=== PATIENT | male | born 1955 | race African-American/Black ===

== ENCOUNTER 2017-09-19 04:28 | Emergency (ER) | payer MEDICAID ==
[~2017-09-19] VITALS: Ht 185.4 cm; Wt 73.8 kg
[2017-09-19] MEDS ORDERED: SODIUM CHLORIDE FLUSH 10ML SYR IVF ONE (05:30)
[2017-09-19 07:28] VITALS: BP 132/92
== END 2017-09-19 07:36 | disposition home or self-care (01) ==
LOC: ED 07:30
DX: S00.01XA Abrasion of scalp, initial encounter (principal); I10 Essential (primary) hypertension; Y00.XXXA Assault by blunt object, initial encounter; Y93.89 Activity, other specified; Y92.410 Unspecified street and highway as the place of occurrence of the external cause; Y99.9 Unspecified external cause status
CPT/HCPCS: 70450; 99284

== ENCOUNTER 2017-09-19 23:06 | Emergency (ER) | payer MEDICAID ==
[2017-09-20] MEDS ORDERED: MECLIZINE CHEWABLE 25 MG TAB ONE (02:10)
[2017-09-20 02:28] LABS: BASOPHILS # (AUTO) 0.05 x10^3/uL (0-0.1); BASOPHILS % (AUTO) 1 % (0-1); EOSINOPHILS # (AUTO) 0.06 x10^3/uL (0-0.4); EOSINOPHILS % (AUTO) 1 % (1-7); LYMPHOCYTES # (AUTO) 1.41 x10^3/uL (1-3.4); LYMPHOCYTES % (AUTO) 19 % (22-44); MD NO; MEAN CORPUSCULAR HEMOGLOBIN 31.1 pg (27.5-34.5); MEAN CORPUSCULAR VOLUME 94.3 fL (81-97); MEAN PLATELET VOLUME 6.9 fL (7.4-10.4); MONOCYTES # (AUTO) 0.78 x10^3/uL (0.2-0.8); MONOCYTES % (AUTO) 11 % (2-9); NEUTROPHILS # (AUTO) 5.03 x10^3/uL (1.8-6.8); NEUTROPHILS % (AUTO) 69 % (42-75); PLATELET COUNT 378 x10^3/uL (130-400); RED BLOOD COUNT 4.18 x10^6/uL (4.38-5.82); RED CELL DISTRIBUTION WIDTH 17.2 % (9.4-14.8)
[2017-09-20] MEDS ORDERED: MECLIZINE CHEWABLE 25 MG TAB PO ONE (02:30)
[2017-09-20 02:39] LABS: ANION GAP 8 mmol/L (5-15); CALCIUM 8.7 mg/dL (8.5-10.1); CHLORIDE 109 mmol/L (98-107)
[2017-09-20 02:43] LABS: TROPONIN I < 0.015 ng/mL (0.000-0.045)
[2017-09-20 03:26] LABS: MICROSCOPIC NOT IND
[2017-09-20 03:29] LABS: CULTURE INDICATED? NO
[2017-09-20 03:39] LABS: AMPHETAMINE SCREEN, URINE Negative (Negative); BARBITURATE SCREEN, URINE Negative (Negative); BENZODIAZEPINE SCREEN, URINE Negative (Negative); CANNABINOID SCREEN, URINE Negative (Negative); COCAINE SCREEN, URINE Negative (Negative); METHADONE SCREEN, URINE Negative (Negative); OPIATE SCREEN, URINE Negative (Negative)
[2017-09-20 04:48] VITALS: BP 155/95
== END 2017-09-20 04:50 | disposition home or self-care (01) ==
LOC: ED 23:59
DX: S09.8XXA Other specified injuries of head, initial encounter (principal); R42 Dizziness and giddiness; I10 Essential (primary) hypertension; W18.39XA Other fall on same level, initial encounter; Y93.89 Activity, other specified; Y92.89 Other specified places as the place of occurrence of the external cause; Y99.8 Other external cause status
CPT/HCPCS: 36415; 71046; 80048; 80307; 81003; 82040; 84484; 85025; 93005; 99285